=== PATIENT | male | born 1975 | race Caucasian/White ===

== ENCOUNTER 2019-04-05 02:37 | Emergency (ER) | payer BC, OTHER ==
[~2019-04-05] VITALS: Ht 170.2 cm; Wt 77.1 kg
[~2019-04-05 02:37] MED LIST: AMOX1TAB61 PO; HYDR-3164 PO
[2019-04-05 02:41] VITALS: BP 124/83
[2019-04-05] MEDS ORDERED: fentaNYL PF VIAL 100 MCG/2 ML VIAL IV ONE (03:15)
--- NOTE | 2019-04-05 03:15 | PHYS DOC ---
Past Medical History Past Medical History: Other Additional Past Medical Histor: ADHD Past Surgical History: Other Additional Past Surgical Histo: RIGHT HAND, Smoking: Cigarettes Alcohol Use: Occasionally Drug Use: None Adult General Chief Complaint Chief Complaint: HIP PAIN HPI HPI Patient is a 44 year old male who presents with complaining of left hip pain. Patient states he had an accidental fall from a standing position 2 weeks ago with mild ecchymosis of left hip area and mild pain with activity. Patient states he felt severe pain in left hip while he was sitting with sudden onset of bulging of left hip area without any direct injury. Patient rated his pain 2 without activity and 10 with moving his left hip and stated he was not able to w alk. Patient denies fever and chills, focal neuro deficit, history of the same problem, taking anticoagulation medication. Patient states he usually drinks alcohol once or twice a week and had 2 shots of alcohol tonight. Review of Systems Review of Systems Constitutional: Denies fever or chills [] Eyes: Denies change in visual acuity, redness, or eye pain [] HENT: Denies nasal congestion or sore throat [] Respiratory: Denies cough or shortness of breath [] Cardiovascular: No additional information not addressed in HPI [] GI: Denies abdominal pain, nausea, vomiting, bloody stools or diarrhea [] : Denies dysuria or hematuria [] Musculoskeletal: Denies back pain, reports joint pain [] Integument: Denies rash or skin lesions [] Neurologic: Denies headache, focal weakness or sensory changes [] Endocrine: Denies polyuria or polydipsia [] All other systems were reviewed and found to be within normal limits, except as documented in this note. Current Medications Current Medications Current Medications Medications (Trade) Dose Ordered Sig/[facility] Start Time Stop Time Status Last Admin Dose Admin Fentanyl Citrate (Fentanyl 2ml Vial) 50 mcg 1X ONCE 04/05/19 03:15 04/05/19 03:16 DC 04/05/19 03:33 50 MCG Allergies Allergies Allergies Coded Allergies Type Severity Reaction Last Updated Verified codeine Adverse Reaction Intermediate VOMIT 03/07/16 Yes Physical Exam Physical Exam Constitutional: Well developed, well nourished, mild distress, non-toxic appearance, smell of alcohol on breath. [] HENT: Normocephalic, atraumatic, oropharynx moist. Eyes: PERRLA, EOMI, conjunctiva normal, no discharge. [] Neck: Normal range of motion, no tenderness, supple, no stridor. [] Cardiovascular:Heart rate regular rhythm, no murmur [] Lungs & Thorax: Bilateral breath sounds clear to auscultation [] Skin: Warm, dry, no erythema, no rash. [] Back: No tenderness, no CVA tenderness. [] Extremities: Left hip with 10 x 10 cm raised area in lateral side of left hip without fluctuation or ecchymosis with severe tenderness and painful range of motion,, no cyanosis, no clubbing. Neurologic: Alert and oriented X 3, normal motor function, normal sensory function, no focal deficits noted. [] Psychologic: Affect anxious, judgement normal, mood normal. [] Current Patient Data Vital Signs Vital Signs Date Time Temp Pulse Resp B/P (MAP) Pulse Ox O2 Delivery O2 Flow Rate FiO2 04/05/19 03:33 18 100 Room Air 04/05/19 02:41 98.2 97 124/83 (97) 98.2 Lab Values Laboratory Tests Test 04/05/19 03:05 White Blood Count 9.1 x10^3/uL (4.0-11.0) Red Blood Count 4.39 x10^6/uL (4.30-5.70) Hemoglobin 14.7 g/dL (13.0-17.5) Hematocrit 42.2 % (39.0-53.0) Mean Corpuscular Volume 96 fL (79-100) Mean Corpuscular Hemoglobin 33 pg (25-35) Mean Corpuscular Hemoglobin Concent 35 g/dL (31-37) Red Cell Distribution Width 13.4 % (11.5-14.5) Platelet Count 208 x10^3/uL (140-400) Neutrophils (%) (Auto) 59 % (31-73) Lymphocytes (%) (Auto) 32 % (24-48) Monocytes (%) (Auto) 7 % (0-9) Eosinophils (%) (Auto) 2 % (0-3) Basophils (%) (Auto) 0 % (0-3) Neutrophils # (Auto) 5.4 x10^3/uL (1.8-7.7) Lymphocytes # (Auto) 2.9 x10^3/uL (1.0-4.8) Monocytes # (Auto) 0.6 x10^3/uL (0.0-1.1) Eosinophils # (Auto) 0.2 x10^3/uL (0.0-0.7) Basophils # (Auto) 0.0 x10^3/uL (0.0-0.2) Prothrombin Time 12.1 SEC (11.7-14.0) Prothrombin Time INR 0.9 (0.8-1.1) Sodium Level 143 mmol/L (136-145) Potassium Level 3.8 mmol/L (3.5-5.1) Chloride Level 105 mmol/L (98-107) Carbon Dioxide Level 23 mmol/L (21-32) Anion Gap 15 (6-14) H Blood Urea Nitrogen 12 mg/dL (8-26) Creatinine 0.9 mg/dL (0.7-1.3) Estimated GFR (Cockcroft-Gault) 92.5 BUN/Creatinine Ratio 13 (6-20) Glucose Level 98 mg/dL (70-99) Calcium Level 8.5 mg/dL (8.5-10.1) Total Bilirubin 0.2 mg/dL (0.2-1.0) Aspartate Amino Transferase (AST) 24 U/L (15-37) Alanine Aminotransferase (ALT) 38 U/L (16-63) Alkaline Phosphatase 66 U/L (46-116) Total Protein 6.6 g/dL (6.4-8.2) Albumin 3.4 g/dL (3.4-5.0) Albumin/Globulin Ratio 1.1 (1.0-1.7) Ethyl Alcohol Level 210 mg/dL (0-10) H Laboratory Tests 04/05/19 03:05 Laboratory Tests 04/05/19 03:05 EKG EKG [] Radiology/Procedures Radiology/Procedures [facility] [address] [place] [address] IMAGING REPORT Signed PATIENT: JACKELYN MEJIA ACCOUNT: [id number] : 1975 LOCATION: ER AGE: 44 SEX: M EXAM STATUS: REG ER ORD. PHYSICIAN: RAFFY VALLES MD REASON: sudden onset of bulging of left hip area;PT FELL ON HIP APPROX 10 DAYS AGO PROCEDURE: CT LOWER EXTREMITY WO LEFT INDICATION: Left hip pain and swelling COMPARISON: None. TECHNIQUE: Axial CT images obtained through the left hip. One or more of the following individualized dose reduction techniques were utilized for this examination: 1. Automated exposure control; 2. Adjustment of the mA and/or kV according to patient size; 3. Use of iterative reconstruction technique. FINDINGS: Partially visualized urinary bladder is distended at time of exam. Scattered calcific atherosclerosis. Posterior to the left proximal femur there is a mixed attenuation but predominantly high density structure within the subcutaneous soft tissues with adjacent stranding of the fat. This extends by approximately 95 mm craniocaudally with axial diameter of approximately 93 x 45 mm. This is located just superficial to the musculature. No definite adjacent fracture. IMPRESSION: 1. Posterior to the left proximal femur and just superficial to the musculature there is a mixed attenuation but predominantly high density structure identified which is most likely secondary to a hematoma. Electronically signed by: Satish Ewing MD (04/05/2019 4:04 AM) [facility] DICTATED and SIGNED BY: SATISH EWING MD DATE: 04/05/19 0404 Course & Med Decision Making Course & Med Decision Making Pertinent Labs and Imaging studies reviewed. (See chart for details) Evaluation of patient in ER showed 44-year-old male patient with sudden onset of developing of large hematoma of left hip hematuria. Patient had unremarkable labs except for blood alcohol of more than 200. CT of left lower extremity showed large hematoma. Patient decided to go home and follow up with his primary care physician. Patient was advised to use crutches and apply ice on the affected area. Dragon Disclaimer Dragon Disclaimer This electronic medical record was generated, in whole or in part, using a voice recognition dictation system. Departure Departure Impression: Primary Impression: Traumatic hematoma of left hip Additional Impression: Alcohol abuse Disposition: HOME, SELF-CARE (at 0431) Condition: IMPROVED Referrals: NO PCP (PCP) YASEMIN MIRANDA MD Patient Instructions: Hematoma Additional Instructions: Apply ice on the affected area Drink plenty of liquids Follow-up with your primary care physician in 3-5 days Return to ER if not getting better Follow-up with [facility] orthopedic physician Scripts Hydrocodone/Apap 5-325 (NORCO 5-325 TABLET) 1 Each Tablet 1 TAB PO PRN Q6HRS PRN for PAIN, #20 TAB 0 Refills Prov: RAFFY VALLES MD 04/05/19 Problem Qualifiers Primary Impression: Traumatic hematoma of left hip Encounter type: initial encounter Qualified Codes: S70.02XA - Contusion of left hip, initial encounter RAFFY VALLES MD Apr 05, 2019 03:15
[2019-04-05 03:21] LABS: BASO % 0 % (0-3); EOS # 0.2 x10^3/uL (0.0-0.7); EOS % 2 % (0-3); HEMATOCRIT 42.2 % (39.0-53.0); HEMOGLOBIN 14.7 g/dL (13.0-17.5); LYMPH # 2.9 x10^3/uL (1.0-4.8); LYMPH % 32 % (24-48); MEAN CORPUSCULAR HEMOGLOBIN 33 pg (25-35); MEAN CORPUSCULAR HGB CONC 35 g/dL (31-37); MEAN CORPUSCULAR VOLUME 96 fL (79-100); MONO # 0.6 x10^3/uL (0.0-1.1); MONO % 7 % (0-9); NEUT # 5.4 x10^3/uL (1.8-7.7); NEUT % 59 % (31-73); PLATELET COUNT 208 x10^3/uL (140-400); RED BLOOD COUNT 4.39 x10^6/uL (4.30-5.70); RED CELL DISTRIBUTION WIDTH 13.4 % (11.5-14.5); WHITE BLOOD COUNT 9.1 x10^3/uL (4.0-11.0)
[2019-04-05 03:29] LABS: CALCIUM 8.5 mg/dL (8.5-10.1); CREATININE 0.9 mg/dL (0.7-1.3); GFR 92.5; POTASSIUM 3.8 mmol/L (3.5-5.1)
[2019-04-05 03:30] LABS: PROTHROMBIN TIME PATIENT 12.1 SEC (11.7-14.0)
[2019-04-05 03:35] LABS: ALBUMIN 3.4 g/dL (3.4-5.0); ALBUMIN/GLOBULIN RATIO 1.1 (1.0-1.7); TOTAL BILIRUBIN 0.2 mg/dL (0.2-1.0); TOTAL PROTEIN 6.6 g/dL (6.4-8.2)
--- NOTE | 2019-04-05 04:07 | RAD ---
INDICATION: Left hip pain and swelling COMPARISON: None. TECHNIQUE: Axial CT images obtained through the left hip. One or more of the following individualized dose reduction techniques were utilized for this examination: 1. Automated exposure control; 2. Adjustment of the mA and/or kV according to patient size; 3. Use of iterative reconstruction technique. FINDINGS: Partially visualized urinary bladder is distended at time of exam. Scattered calcific atherosclerosis. Posterior to the left proximal femur there is a mixed attenuation but predominantly high density structure within the subcutaneous soft tissues with adjacent stranding of the fat. This extends by approximately 95 mm craniocaudally with axial diameter of approximately 93 x 45 mm. This is located just superficial to the musculature. No definite adjacent fracture. IMPRESSION: 1. Posterior to the left proximal femur and just superficial to the musculature there is a mixed attenuation but predominantly high density structure identified which is most likely secondary to a hematoma. Electronically signed by: Alonzo Chin MD (04/05/2019 4:04 AM) [facility]
[2019-04-05] MEDS ORDERED: HYDR-3164 PO (04:33)
== END 2019-04-05 04:48 | disposition home or self-care (01) ==
LOC: ER 02:37
DX: S70.02XA Contusion of left hip, initial encounter (principal); F10.10 Alcohol abuse, uncomplicated; Y90.7 Blood alcohol level of 200-239 mg/100 ml; F17.210 Nicotine dependence, cigarettes, uncomplicated; Z88.5 Allergy status to narcotic agent; W18.39XA Other fall on same level, initial encounter; Y93.89 Activity, other specified; Y92.89 Other specified places as the place of occurrence of the external cause; Y99.8 Other external cause status
CPT/HCPCS: 36415; 73700; 80053; 85025; 85610; 96374; 99285; G0480; J3010